=== PATIENT | female | born 2000 | race African-American/Black ===

== ENCOUNTER 2025-06-15 12:16 | Emergency (ER) | payer MEDICAID ==
[~2025-06-15] VITALS: Ht 167.6 cm; Wt 74.8 kg
[2025-06-15 12:41] VITALS: BP 124/61; TEMP 98
[2025-06-15] MEDS ORDERED: ONDA4TAB11 PO (13:09)
[2025-06-15] MEDS ORDERED: PANT20TA2 PO (13:09)
[2025-06-15] MEDS ORDERED: LIDOCAINE VISCOUS 2% UD 15 ML UDC ONE (13:15)
[2025-06-15] MEDS ORDERED: ONDANSETRON 4 MG TAB.RAPDIS ONE (13:15)
[2025-06-15] MEDS ORDERED: FAMOTIDINE (20 MG) 20 MG TABLET ONE (13:15)
[2025-06-15] MEDS ORDERED: MAG HYDROX/AL HYDROX/SIMETH 30 ML UDC ONE (13:15)
[2025-06-15] MEDS: MAG HYDROX/AL HYDROX/SIMETH 30 ML UDC PO ONE (13:19)
[2025-06-15] MEDS: FAMOTIDINE (20 MG) 20 MG TABLET PO ONE (13:19)
[2025-06-15] MEDS: LIDOCAINE VISCOUS 2% UD 15 ML UDC MM ONE (13:19)
[2025-06-15 13:20] VITALS: O2SAT 98
[2025-06-15] MEDS: ONDANSETRON 4 MG TAB.RAPDIS SL ONE (13:20)
== END 2025-06-15 13:29 | disposition home or self-care (01) ==
LOC: ER 12:16
DX: K29.70 Gastritis, unspecified, without bleeding (principal); R10.13 Epigastric pain; F41.9 Anxiety disorder, unspecified
CPT/HCPCS: 99284; Q0162

== ENCOUNTER 2025-06-17 13:56 | Emergency (ER) | payer MEDICAID, OTHER ==
[~2025-06-17] VITALS: Ht 167.6 cm; Wt 74.8 kg
[~2025-06-17 13:56] MED LIST: ONDA4TAB11 PO; PANT20TA2 PO
[2025-06-17 15:17] LABS: PLATELET COUNT (AUTO) 233 K/uL (150-450); RED BLOOD CELL COUNT(AUTO) 5.27 MIL/uL (4.0-5.2); RED CELL DISTRIBUTION WIDTH 14.7 % (11.5-15.0); WHITE BLOOD COUNT (AUTO) 6.3 K/uL (4.3-11.0)
[2025-06-17 15:25] LABS: CALCIUM, SERUM 9.4 mg/dL (8.5-10.1); CREATININE 0.9 mg/dL (0.6-1.3); SODIUM SERUM 138 mmol/L (136-145); UREA NITROGEN, BLOOD 5 mg/dL (7-18)
[2025-06-17 15:38] LABS: NT-PRO BNP 85 pg/mL (0-125)
[2025-06-17 16:21] VITALS: BP 145/70; TEMP 98.6; O2SAT 98
== END 2025-06-17 16:22 | disposition home or self-care (01) ==
LOC: ER 14:00
DX: R07.89 Other chest pain (principal); R06.02 Shortness of breath; F41.9 Anxiety disorder, unspecified; R07.9 Chest pain, unspecified; R11.10 Vomiting, unspecified; Z79.899 Other long term (current) drug therapy
CPT/HCPCS: 36415; 71045-TC; 80048-TC; 83880; 84484-TC; 85025-TC; 85378-TC

== ENCOUNTER 2025-06-27 18:15 | Emergency (ER) | payer OTHER ==
[~2025-06-27] VITALS: Ht 167.6 cm; Wt 72.1 kg
[2025-06-27 18:30] VITALS: BP 126/81; TEMP 98.1; O2SAT 98
[2025-06-27] MEDS ORDERED: FAMOTIDINE (20 MG) 20 MG TABLET ONE (19:09)
[2025-06-27] MEDS: FAMOTIDINE (20 MG) 20 MG TABLET PO ONE (19:13)
[2025-06-27] MEDS ORDERED: FAMO20TA80 PO (19:23)
== END 2025-06-27 19:34 | disposition home or self-care (01) ==
LOC: ER 18:19
DX: R07.89 Other chest pain (principal); R00.2 Palpitations; K21.9 Gastro-esophageal reflux disease without esophagitis; F41.9 Anxiety disorder, unspecified; Z79.899 Other long term (current) drug therapy
CPT/HCPCS: 99283; 93005; 82962; Q0177